=== PATIENT | female | born 1955 | race Caucasian/White ===

== ENCOUNTER → 2018-10-19 10:31 | Outpatient (CLI) | payer MEDICARE ==
[2009-10-01 15:17] VITALS: BMI 32.0
== END | disposition home or self-care (01) ==
LOC: D.RT 10:31
PROVIDERS: ATTEND Internal Medicine Pulmonary Disease
DX: F17.210 Nicotine dependence, cigarettes, uncomplicated (principal)

== ENCOUNTER → 2020-10-02 11:59 | Outpatient (CLI) | payer MEDICARE ==
[2020-08-29 13:11] VITALS: BMI 29.5
== END | disposition home or self-care (01) ==
LOC: D.RAD 11:59
PROVIDERS: ATTEND Family Medicine
DX: R13.10 Dysphagia, unspecified (principal)